=== PATIENT | female | born 1990 | race African-American/Black ===

== ENCOUNTER 2019-08-29 22:51 | Emergency (ER) | payer OTHER ==
[~2019-08-29] VITALS: Ht 160 cm; Wt 77.3 kg
[2019-08-30] MEDS ORDERED: IBUPROFEN 400 MG TABLET PO ONE (01:15)
[2019-08-30] MEDS ORDERED: ACETAMINOPHEN 325 MG TABLET PO ONE (01:15)
[2019-08-30 01:16] VITALS: BP 129/74
== END 2019-08-30 01:51 | disposition home or self-care (01) ==
LOC: EMS 22:51
DX: S40.022A Contusion of left upper arm, initial encounter (principal); S70.01XA Contusion of right hip, initial encounter; V49.9XXA Car occupant (driver) (passenger) injured in unspecified traffic accident, initial encounter; Y93.89 Activity, other specified; Y92.89 Other specified places as the place of occurrence of the external cause; Y99.8 Other external cause status